=== PATIENT | female | born 1950 | race Caucasian/White ===

== ENCOUNTER 2019-09-07 07:57 | Inpatient (IN) | payer MEDICARE ==
[~2019-09-07] VITALS: Ht 149.9 cm; Wt 93.0 kg
[~2019-09-07 07:57] MED LIST: ALPR1 PO; Aspir 8181 MG PO; CYCL10 PO; Cymbalta60 MG PO; HYDACE5 PO; HYDCHL12.5 PO; NAPR500 PO; Omeprazole20 M1 PO; PROM25 PO; TRAZ50; ZOLP5
[2019-09-07] MEDS ORDERED: ESCI20 PO (08:13)
[2019-09-07] MEDS ORDERED: GABA300 PO (08:13)
[2019-09-07 08:53] LABS: BASOPHILS ABSOLUTE AUTO 0.05 K/mm3 (0.00-0.23); BASOPHILS PERCENT AUTO 1 % (0-2); EOSINOPHILS PERCENT AUTO 7 % (0-6); Hematocrit 41.6 % (33.0-51.0); Hemoglobin 13.4 g/dL (11.5-16.0); IMMATURE GRAN ABSOLUTE AUTO 0.02 K/mm3 (0.00-0.10); IMMATURE GRAN PERCENT AUTO 0 % (0-1); LYMPHOCYTES ABSOLUTE AUTO 1.86 K/mm3 (0.84-5.20); LYMPHOCYTES PERCENT AUTO 27 % (21-46); MONOCYTES ABSOLUTE AUTO 0.79 K/mm3 (0.16-1.47); MONOCYTES PERCENT AUTO 11 % (4-13); Mean Corpuscular HGB 30.5 pg (26.0-34.0); Mean Corpuscular HGB Conc 32.2 g/dL (31.5-36.5); Mean Corpuscular Volume 95 fL (80-100); Mean Platelet Volume 11.6 fL (9.1-12.4); NEUTROPHILS ABSOLUTE AUTO 3.79 K/mm3 (1.96-9.15); NEUTROPHILS PERCENT AUTO 54 % (41-73); Platelet Count 211 K/mm3 (150-400); RDW Coefficient Variation 13.1 % (11.7-14.2); RDW Standard Deviation 45.8 fL (35.1-46.3); Red Blood Cell Count 4.39 M/mm3 (3.80-5.20); White Blood Cell Count 7.01 K/mm3 (4.00-11.30)
[2019-09-07 09:11] LABS: Alanine Aminotransfer (ALT/SGP 34 U/L (12-78); Albumin, Blood 3.8 g/dL (3.4-5.0); Albumin/Globulin Ratio 1.2 (0.8-1.8); Alk Phos 96 U/L (50-136); Anion Gap 7 mmol/L (6-16); Aspartate Aminotrans (AST/SGOT 20 U/L (12-37); Bilirubin, Total 0.3 mg/dL (0.1-1.0); Blood Urea Nitrogen 21 mg/dL (8-24); Bun/Creatinine Ratio 24.9 (12.0-20.0); CO2, Blood 27 mmol/L (21-32); Chloride, Blood 106 mmol/L (98-108); Creatinine, Blood 0.84 mg/dL (0.40-1.00); Globulin, Blood 3.1 g/dL (2.2-4.0); Glomerular Filtration Rate >60 (60-); Glucose, Blood 117 mg/dL (70-99); Potassium, Blood 3.6 mmol/L (3.5-5.5); Sodium, Blood 140 mmol/L (136-145); Total Protein, Blood 6.9 g/dL (6.4-8.2)
[2019-09-07 16:05] LABS: International Normalized Ratio 1.01; Prothrombin Time Results 10.8 Sec (9.7-11.5)
--- NOTE | 2019-09-07 17:08 | NUR ---
PT AOX4 AND COOPERATIVE OF CARE. PT RESTING IN BED AT THIS TIME WITH CALL LIGHT WITHIN REACH. PT KEEPS CLEARING HER THROAT AND STATES IT IS SOMETIMES HARD TO BRING UP A WORD TO SAY. PT STATES SHE DOES NOTE FEEL THE NUMBNESS IN HER MOUTH LIKE SHE HAD BEEN. NO DISTRESS NOTED AND BP LOOKS IMPROVED UPON ARRIVAL. WILL CONTINUE TO MONITOR.
--- NOTE | 2019-09-07 18:50 | NUR ---
ASSUMED CARE RECEIVED REPORT FROM GAB ALBERTS. ASSUMED CARE OF PT. RESTING COMFORTABLY AT THIS TIME, NO S/S ACUTE DISTRESS NOTED. PT CONVERSING WITH STAFF, OCCASIONAL SLURRING OF SPEECH NOTED, PT ABLE TO EXPRESS NEEDS AND THOUGHTS APPROPRIATELY. DENIES NEEDS AT THIS TIME. CALL LIGHT, POSSESSIONS IN REACH. WILL CONTINUE TO MONITOR.
--- NOTE | 2019-09-08 04:30 | NUR ---
[address] SUBRAMANIAN REGARDING PT INABILITY TO VOID. ORDERS RECEIVED.
[2019-09-08 04:57] LABS: BASOPHILS ABSOLUTE AUTO 0.05 K/mm3 (0.00-0.23); BASOPHILS PERCENT AUTO 1 % (0-2); EOSINOPHILS PERCENT AUTO 8 % (0-6); Hematocrit 41.3 % (33.0-51.0); Hemoglobin 13.1 g/dL (11.5-16.0); IMMATURE GRAN ABSOLUTE AUTO 0.02 K/mm3 (0.00-0.10); IMMATURE GRAN PERCENT AUTO 0 % (0-1); LYMPHOCYTES ABSOLUTE AUTO 2.15 K/mm3 (0.84-5.20); LYMPHOCYTES PERCENT AUTO 36 % (21-46); MONOCYTES ABSOLUTE AUTO 0.61 K/mm3 (0.16-1.47); MONOCYTES PERCENT AUTO 10 % (4-13); Mean Corpuscular HGB 30.8 pg (26.0-34.0); Mean Corpuscular HGB Conc 31.7 g/dL (31.5-36.5); Mean Corpuscular Volume 97 fL (80-100); Mean Platelet Volume 11.4 fL (9.1-12.4); NEUTROPHILS ABSOLUTE AUTO 2.72 K/mm3 (1.96-9.15); NEUTROPHILS PERCENT AUTO 45 % (41-73); Platelet Count 181 K/mm3 (150-400); RDW Coefficient Variation 13.2 % (11.7-14.2); RDW Standard Deviation 47.1 fL (35.1-46.3); Red Blood Cell Count 4.25 M/mm3 (3.80-5.20); White Blood Cell Count 6.05 K/mm3 (4.00-11.30)
[2019-09-08 05:11] LABS: Anion Gap 2 mmol/L (6-16); Blood Urea Nitrogen 19 mg/dL (8-24); Bun/Creatinine Ratio 21.7 (12.0-20.0); CO2, Blood 31 mmol/L (21-32); Calcium, Blood 8.6 mg/dL (8.5-10.1); Chloride, Blood 108 mmol/L (98-108); Creatinine, Blood 0.88 mg/dL (0.40-1.00); Glomerular Filtration Rate >60 (60-); Glucose, Blood 89 mg/dL (70-99); Potassium, Blood 3.5 mmol/L (3.5-5.5); Sodium, Blood 141 mmol/L (136-145)
--- NOTE | 2019-09-08 06:29 | NUR ---
SHIFT SUMMARY PT RESTING COMFORTABLY, NO S/S ACUTE DISTRESS AT THIS TIME. BP AND VS STABLE. PT BLADDER SCANNED AND STRAIGHT CATHED FOR BLADDER SCAN OF 574ML, 570ML URINE DRAINED. PT STATES SHE FEELS BETTER. NO OTHER ACUTE EVENTS NOTED. NEURO STATUS STABLE. DENIES NEEDS AT THIS TIME. CALL LIGHT, POSSESSIONS IN REACH, BED IN LOWEST POSITION WITH ALARM ON. WILL CONTINUE TO MONITOR UNTIL DAY RN ASSUMES CARE.
--- NOTE | 2019-09-08 17:23 | NUR ---
PT IS AOX4 AND COOPERATIVE OF CARE. PT IS A ONE PERSON WITH GAIT BELT TO RESTROOM. PT DID NOT GET BLADDER SCANNED SHE IS VOIDING NOW. PT WILL STAY NPO TODAY EXCEPT FOR WATER AND CAN TAKE HER MEDS WHOLE FOLLOWING SWALLOW PRECAUTIONS IN ROOM. PT CALLS APPROPRIATELY. PT STATES SHE HAS LESS NUMBNESS ON HER R SIDE WITH ARM AND LEG. PT CAN MOVE TO QUICK SHE DID WITH PHYSICAL THERAPY AND ENDED UP KNEELING THINKING HER LEG WOULD MOVE DIFFERENT. PT JUST NEED TO BE SLOWED DOWN AND GAIT BELT WITH WALKER. MILD R FACIAL DROOP STILL NOTED AT THIS TIME WILL CONTINUE TO MONITOR.
--- NOTE | 2019-09-08 18:01 | NUR ---
[facility] C[facility] VISIT: REFERRAL RECEIVED FOR CONVERSATION WITH PT RE: CODE STATUS AND ADVANCED DIRECTIVES PER PT'S REQUEST AND DR'S REFERRAL. INTRODUCED MYSELF TO PT WHO WAS RESTING QUIETLY, MAYBE NAPPING WHEN I KNOCKED ON DOOR. SHE WOKE EASILY AND WAS WELCOMING OF THE CONVERSATION. SHE STATED SHE HAS ALWAYS THOUGHT "I WANT ALL LIFE SAVING MEASURES DONE" BUT WHEN ASKED BY DRS YESTERDAY RE: CODE STATUS SHE STARTED WONDERING IF SHE REALLY DID WANT TO REMAIN A FULL CODE. I LISTENED AND PROVIDED ANSWERS TO PT'S QUESTIONS. WE DISCUSSED OUTCOMES AND SPECIFIC SCENARIOS FOR NECESSARY DECISION MAKING THAT DO NOT CURRENTLY APPLY TO PT'S SITUATION. SHE IS 68 AND CONSIDERS HERSELF HEALTHY. SHE WAS ADMITTED DUE TO A "SMALL STROKE". SHE IS ABLE TO SWALLOW, COMMUNICATE AND WALK TO BR WITH ONE PERSON ASSIST. SHE STATES AT 68, "IS IT THE RIGHT THING TO WANT TO BE SAVED". I ENCOURAGED HER TO CONSIDER HER OWN PERSONAL SITUATION AND VALUES IN RELATIONSHIP TO QUALITY OF LIFE AND REVISIT THAT EVALUATION REGULARLY IF THERE WERE CHANGES TO HER HEALTH AND WITH ADVANCING AGE, TO DISCUSS WITH HER , FAMILY AND PCP. PT WAS GIVEN BLANK AD AND POLST FORMS PER HER REQUEST. I RECOMMENDED THAT AFTER CONSIDERATION AND DECISION FOR HERSELF THAT SHE TAKE THE POLST TO HER NEXT DARI WITH HER PCP AND GET THEIR INPUT AND COMPLETE. INSTRUCTED TO GIVE COPIES OF COMPLETED FORMS TO DRS, HOSPITAL AND FAMILY MEMBERS OR SURROGATE DECISION MAKERS. PT GIVEN TWO BROCHURES ON LIFE SUSTAINING TREATMENTS, INCLUDING HARD CHOICES FOR LOVING PEOPLE FOR HER AND HER TO REVIEW TOGETHER. PT SEEMED RELIEVED TO HAVE THIS CONVERSATION AND LESS ANXIOUS IN HER CONSIDERATIONS OF CHOICES AFTERWARDS. PT GIVEN CONTACT INFO TO REACH US AND ENCOURAGED TO CALL OR HAVE RN PAGE US IF SHE WOULD LIKE TO TALK FURTHER. SHE IS HOPEFUL FOR D/C HOME TOMORROW WITH EITHER HH OR OP PT AND OT. SHE REPORTS SHE HAS HELP AT HOME. SHE DENIES PAIN AND EXPRESSES GRATITUDE FOR "HOW LINDA I AM" WITH MINIMAL SEQUELAE FROM CVA. REPORT ON VISIT TO RN AFTERWARDS.
--- NOTE | 2019-09-08 20:39 | NUR ---
PT REPORTING NEW ONSET L LE "HEAVINESS" AND INCREASED EFFORT SWALLOWING. CALL TO HOSPITALIST ADÁN. NEW ORDER FOR STAT CT.
--- NOTE | 2019-09-09 04:16 | NUR ---
SHIFT SUMMARY: BP'S 177/80. PULSES 49-54. S[place] MARY PER TELE MONITOR. A/OX3. SLIGHTLY SLOW TO RESPOND. SPEECH IS CLEAR W/MINOR SLURRING. CONT W/BARELY NOTICEABLE R FACE DROOP. B KITCHEN WORKER EQUAL AND WEAK, LLE PUSH/PULL SLIGHTLY WEAKER THAN R. PT HAD CT SCAN TONIGHT AFTER REPORTS OF NEW RLE "HEAVINESS" AND INCREASED DIFFICULTY SWALLOWING. PT REPORTED HER SYMPTOMS WERE IMPROVING ON HER WAY DOWN TO THE CT SCAN. NO FURTHER ISSUES TONIGHT. T/F W SBA. HAS SLEPT INTERMITTENTLY. WILL CONT TO MONITOR.
[2019-09-09 05:22] LABS: CHOL/HDL RATIO 4.2; Cholesterol 171 mg/dL (50-200); HDL Cholesterol 41 mg/dL (>39); LDL/HDL RATIO 2.6; Low Density Lipoprotein Chol 105 mg/dL (0-110); Triglycerides 127 mg/dL (30-160); Very Low Density Lipoprot Chol 25 mg/dL (6-32)
--- NOTE | 2019-09-09 09:31 | NUR ---
RN contacted this therapist to relay that the patient had changed her mind and was open to having a modified barium swallow study completed as an inpatient. Therefore order was placed.
--- NOTE | 2019-09-09 12:32 | NUR ---
SHE HAS HAD A BEDSIDE SWALLOW EVAL AND A SWALLOW STUDY IN XRAY TODAY. ROUNDED. SHE EXPLAINED LAST NIGHT'S CT RESULTS TO HER. SHE AGREES THAT STAYING ANOTHER NIGHT IS RIGHT. IVF'S CONTINUE. MECH SOFT DIET HAS BEEN STARTED. SHE HAS SLIGHTLY SLURRED SPEECH AND A RIGHT FACIAL DROOP. SHE HAS WORKED WITH OT ALSO AND HAS BEEN AMBULATING WELL. WE BLADDER SCANNED HER AT 1130. THERE WAS 168 MLS IN HER BLADDER. IT WAS NOT A PVR. CHIEF DESIGN DRAFTER SAW HER ALSO BEFORE BREAKFAST. SHE LEFT A NOTE. SHE HAS NOT BEEN BRADYCARDIC THIS SHIFT. HER FAMILY IS SUPPOSE TO BRING HER CPAP FOR HER.
--- NOTE | 2019-09-09 17:40 | NUR ---
NO NEW NEURO DEFICITS TODAY. SHE STILL HAS A RT FACIAL DROOP AND NUMBNESS AROUND THE MOUTH. SHE WORKED WITH PT, OT, AND ST. SHE ALSO HAD A SWALLOW TEST IN RADIOLOGY. DR. CRUZ AND DR. BENDER ROUNDED. 2 BLADDER SCANS DONE TODAY. AM ONE WAS 168 MLS. PRE DINNER ONE WAS 371. NO CATHERIZATION NEEDED. TELE NSR 70'S AND 80'S. LATER SB 50'S. SHE NAPPED A LOT THIS AFTERNOON AFTER A VERY BUSY MORNING.
--- NOTE | 2019-09-10 05:30 | NUR ---
SHIFT SUMMARY: VSS. RECIEVED CALL FROM TELE SEAT COVERS TRIMMER STATING PULSES IN THE LOW 40'S TONIGHT. THIS IS COMPARABLE TO PT'S ONGOING BRADYCARDIA AT REST. AFEB. A/OX4. COMMUNICATES NEEDS. T/F W/1 ASSIST AND FWW. GAIT OCCASIONALLY UNSTEADY. NO FACIAL DROOP EVIDENT. PT REPORTS SLIGHT PERIORAL NUMBNESS. BILATERAL DRAFTER CHIEF DESIGN/PUSHES/PULLS EQUAL BILATERALLY. WORE CPAP ALL NIGHT. REPORTING MADISON 5/10 THIS AM. ULTRAM ADMINISTERED. WILL CONT TO MONITOR.
[2019-09-10] MEDS ORDERED: ASPI325 PO (12:19)
[2019-09-10] MEDS ORDERED: ATOR40TA PO (12:20)
[2019-09-10] MEDS ORDERED: Prinivil10 MG PO (12:22)
--- NOTE | 2019-09-10 13:16 | NUR ---
PT DCD HOME WITH . MED REC FAXED TO PHARMACY OF CHOICE. ALL INSTRUCTIONS AND MEDS REVIEWED WITH PT. ALL QUESTIONS ANSWERED. IV REMOVED WITH NO ISSUE. ALL PERSONAL BELONGINGS SENT WITH PT. PT ASSISTED TO TRUCK WITH . PT STABLE ON DC.
== END 2019-09-10 13:00 | disposition home health service (06) | DRG 65 ==
LOC: ER 07:57 → MEDS 14:26
PROVIDERS: Emergency Medicine; ADMIT Student in an Organized Health Care Education/Training Program
DX: I63.81 Other cerebral infarction due to occlusion or stenosis of small artery (principal); G81.91 Hemiplegia, unspecified affecting right dominant side; R47.81 Slurred speech; R13.12 Dysphagia, oropharyngeal phase; I10 Essential (primary) hypertension; E78.5 Hyperlipidemia, unspecified; G47.33 Obstructive sleep apnea (adult) (pediatric); E66.01 Morbid (severe) obesity due to excess calories; Z68.39 Body mass index [BMI] 39.0-39.9, adult; R73.01 Impaired fasting glucose; F32.9 Major depressive disorder, single episode, unspecified; R00.1 Bradycardia, unspecified; M79.7 Fibromyalgia; Z79.82 Long term (current) use of aspirin; Z79.899 Other long term (current) drug therapy
CPT/HCPCS: 36415; 51701; 70450; 70496; 70498; 70551; 74230; 80048; 80053; 80061; 83036; 84484; 85025; 85610; 85730; 92526; 92610; 92611; 93005; 93010; 93306; 96372; 97112; 97116; 97162; 97166; 97530; 97535; 99285-25; A9270-GY; G0378; J1650; J7030; Q9967

== ENCOUNTER → 2021-09-10 | Outpatient (CLI) | payer MEDICARE ==
[~2021-09-10] MED LIST changes: +ASPI325 PO; +ATOR40TA PO; +DESL5; +ESCI20 PO; +GABA300 PO; +Prinivil10 MG PO
== END | disposition home or self-care (01) ==
LOC: LAB SHORT 10:28 → LAB 10:28
DX: N39.0 Urinary tract infection, site not specified (principal)
CPT/HCPCS: 87077; 87086; 87186

== ENCOUNTER 2022-11-05 16:24 | Observation (INO) | payer MEDICARE ==
[~2022-11-05] VITALS: Ht 147.3 cm; Wt 84.1 kg
[~2022-11-05 16:24] MED LIST changes: -DESL5; +DESL5 PO
[2022-11-05 17:53] LABS: BASOPHILS ABSOLUTE AUTO 0.05 K/mm3 (0.00-0.23); BASOPHILS PERCENT AUTO 1 % (0-2); EOSINOPHILS ABSOLUTE AUTO 0.65 K/mm3 (0.00-0.68); EOSINOPHILS PERCENT AUTO 7 % (0-6); Hematocrit 37.2 % (33.0-51.0); Hemoglobin 12.5 g/dL (11.5-16.0); IMMATURE GRAN ABSOLUTE AUTO 0.01 K/mm3 (0.00-0.10); IMMATURE GRAN PERCENT AUTO 0 % (0-1); LYMPHOCYTES ABSOLUTE AUTO 2.71 K/mm3 (0.84-5.20); LYMPHOCYTES PERCENT AUTO 28 % (21-46); MONOCYTES ABSOLUTE AUTO 0.97 K/mm3 (0.16-1.47); MONOCYTES PERCENT AUTO 10 % (4-13); Mean Corpuscular HGB 31.1 pg (26.0-34.0); Mean Corpuscular HGB Conc 33.6 g/dL (31.5-36.5); Mean Corpuscular Volume 93 fL (80-100); NEUTROPHILS ABSOLUTE AUTO 5.47 K/mm3 (1.96-9.15); NEUTROPHILS PERCENT AUTO 56 % (41-73); Platelet Count 202 K/mm3 (150-400); RDW Coefficient Variation 13.2 % (11.7-14.2); RDW Standard Deviation 45.1 fL (35.1-46.3); Red Blood Cell Count 4.02 M/mm3 (3.80-5.20); White Blood Cell Count 9.86 K/mm3 (4.00-11.30)
[2022-11-05 18:15] LABS: Albumin, Blood 3.5 g/dL (3.4-5.0); Albumin/Globulin Ratio 0.9 (0.8-1.8); Bilirubin, Total 0.6 mg/dL (0.1-1.0); Bun/Creatinine Ratio 29.9 (12.0-20.0); Calcium, Blood 9.5 mg/dL (8.5-10.1); Creatinine, Blood 0.77 mg/dL (0.40-1.00); Globulin, Blood 3.9 g/dL (2.2-4.0); Potassium, Blood 3.1 mmol/L (3.5-5.5); Total Protein, Blood 7.4 g/dL (6.4-8.2)
[2022-11-05] MEDS ORDERED: ATOR40TA PO (19:42)
[2022-11-05] MEDS ORDERED: LOSA50 PO (19:43)
[2022-11-05 21:07] VITALS: BP 145/53
--- NOTE | 2022-11-05 21:25 | NUR ---
ARRIVAL PT ARRIVED TO THE FLOOR,NEW ADMIT FROM ER. IN NO DISTRESS, A/OX4, ON RA. REPORTS NO N/V OR ABD PAIN AT THIS TIME. REPORTS DIFFUSE PAIN WHEN ABD IS HURTING. THE PATIENT IS CURRENTLY RESTING IN BED, IN NO DISTRESS, CALL LIGHT IN REACH
[2022-11-06] VITALS (17 sets, daily range): BP systolic 98–152; BP diastolic 42–67
--- NOTE | 2022-11-06 04:12 | NUR ---
SHIFT SUMMARY VSS. PT SLEPT WELL T/O THE NIGHT. VOIDING W/O DIFFICULTY, AMBULATING WITH SBA D/T IV LINE. REMAINS A/OX4. MEDICATED FOR PAIN ONCE WITH FENT, GOOD RESULTS. PT ATE W/O N/V UNTIL 0000. HAS BEEN NPO SINCE. NO ACUTE EVENTS NOTED. PLAN FOR PT TO HAVE A LAP APPY TODAY. THE PATIENT IS CURRENTLY SLEEPING, IN NO DISTRESS, CALL LIGHT IN REACH
[2022-11-06 05:22] LABS: Hematocrit 34.3 % (33.0-51.0); Hemoglobin 11.4 g/dL (11.5-16.0); Mean Corpuscular HGB 31.6 pg (26.0-34.0); Mean Corpuscular HGB Conc 33.2 g/dL (31.5-36.5); Mean Corpuscular Volume 95 fL (80-100); Mean Platelet Volume 11.2 fL (9.1-12.4); Platelet Count 182 K/mm3 (150-400); RDW Coefficient Variation 13.2 % (11.7-14.2); RDW Standard Deviation 45.6 fL (35.1-46.3); Red Blood Cell Count 3.61 M/mm3 (3.80-5.20); White Blood Cell Count 8.57 K/mm3 (4.00-11.30)
[2022-11-06 06:08] LABS: Bun/Creatinine Ratio 24.4 (12.0-20.0); Calcium, Blood 9.1 mg/dL (8.5-10.1); Creatinine, Blood 0.9 mg/dL (0.40-1.00); Magnesium, Blood 2.3 mg/dL (1.6-2.4); Potassium, Blood 3.7 mmol/L (3.5-5.5)
--- NOTE | 2022-11-06 16:57 | NUR ---
SHIFT SUMMARY- PT ALERT, ORIENTED AND INEPENDENT PRIOR TO LAP APPENDECTOMY EARLIER THIS SHIFT. PT PAIN APPPEARS TO BE WELL MANAGED WITH IV FENTANYL, PT STATES WHEN TAKING HYDRO OR OXY SHE BECAME VERY NAUSEATED, SHE IS NOT WILLING TO TRY THEM AGAIN AT THIS TIME. LAP SITES (3) ARE CLEAN DRY AND INTSCT. NO BRUISING, ABD IS SOFT. VSS ON POST OP VITALS. POST OP VITALS ARE Q4 UNTIL 1200 TOMORROW. PT IN BED SLEEPING AT THIS TIME. CALL LIGHT IN REACH NO S&S OF DISTRESS NOTED. PLAN FOR POSSIBLE DC TOMORROW.
[2022-11-07 00:10] VITALS: BP 132/51
[2022-11-07 04:11] VITALS: BP 143/50
--- NOTE | 2022-11-07 04:24 | NUR ---
SHIFT SUMMARY NO ACUTE CHANGES DURING SHIFT. PT ALERT AND ORIENTED, CALLS APPROPRIATELY. PT REMAINS ON RA, X 1 ASSIST TO BATHROOM. PT C/O PAIN TO ABD, MEDICATED WITH PRN PAIN MEDS, EFFECTIVE. LAP SITES X 3. POSSIBLE D/C IN AM. WILL CONTINUE TO MONITOR. CALL LIGHT WITHIN REACH.
[2022-11-07 07:53] VITALS: BP 143/86
--- NOTE | 2022-11-07 12:32 | NUR ---
11/07/22 1232 Sandi Bowling VERIFICATIONS: EDIT CHART.
[2022-11-07 15:12] VITALS: BP 158/52
--- NOTE | 2022-11-07 15:12 | NUR ---
NOTE NO BM YET. GIVEN MIRALAX MIXED WITH WARM PRUNE JUICE AND BUTTER. PASSING GAS. ENCOURAGED HER TO WALK! SHE IS REFUSING. HER SISTER ENCOURAGED HER TO WALK WELL. SHE REFUSED HER SISTER TOO. MEDICATED FOR PAIN PER ORDER. CONTINUE POC.
[2022-11-07] MEDS ORDERED: DOCU100 PO (15:44)
[2022-11-07] MEDS ORDERED: Percocet 5-3251 EACH PO (15:44)
[2022-11-07] MEDS ORDERED: MIRALAX17 GM PO (15:45)
[2022-11-07] MEDS ORDERED: SENNA LAXATIVE8.6 MG PO (15:45)
[2022-11-07 19:36] VITALS: BP 148/51
--- NOTE | 2022-11-08 05:47 | NUR ---
SHIFT SUMMARY PT IS A&O4, IND IN ROOM, RA, STILL HAS NOT HAD BM PRN MIRALAX AND BROWN COW GIVEN, PT REFUSES ENEMA AT THIS TIME, ENCOURAGED PT TO AMBULATE, PRN PAIN MEDICATION GIVEN PER MAR, NO ACUTE OVERNIGHT EVENTS CONTINUE POC
[2022-11-08 06:12] VITALS: BP 165/53
[2022-11-08 07:54] VITALS: BP 187/53
--- NOTE | 2022-11-08 15:07 | NUR ---
SHIFT/DC SUMMARY: Pt remains A&O x3 this shift. Abdominal pain managed with Tylenol. VSS, ambulating in hallway independently with goal of BM. BS hypoactive, tolerating diet, afebrile. Pt request enema for BM with 1 small BM after given. Lap/appy incision sites dry, no redness. All discharge instructions reviewed with return verbal understanding. Pt to lobby with all belongings.
== END 2022-11-08 14:56 | disposition home or self-care (01) ==
LOC: ER 16:24 → MEDS 16:25 → ER 20:12 → MEDS 20:57
PROVIDERS: Nurse Practitioner Acute Care; Physician Assistant; ADMIT Internal Medicine
PROC: 0DTJ0ZZ Resection of Appendix, Open Approach (ICD-10-PCS; principal; 2022-11-05)
DX: K35.80 Unspecified acute appendicitis (principal); E78.5 Hyperlipidemia, unspecified; G47.33 Obstructive sleep apnea (adult) (pediatric); I10 Essential (primary) hypertension; K21.9 Gastro-esophageal reflux disease without esophagitis; F32.9 Major depressive disorder, single episode, unspecified; Z86.73 Personal history of transient ischemic attack (TIA), and cerebral infarction without residual deficits; Z88.0 Allergy status to penicillin; Z88.5 Allergy status to narcotic agent; Z99.89 Dependence on other enabling machines and devices
CPT/HCPCS: 36415; 80048; 80053; 83735; 85025; 85027; 88304; 94660; 94762; 96365; 96375; 96376; 99284-25; A9270; G0378; J0744; J1100; J2185; J2250; J2370; J2405; J2704; J3010; J7030; J7120

== ENCOUNTER → 2023-02-08 | Outpatient (CLI) | payer MEDICARE ==
[~2023-02-08] MED LIST changes: +DOCU100 PO; +LOSA50 PO; +MIRALAX17 GM PO; +Percocet 5-3251 EACH PO; +SENNA LAXATIVE8.6 MG PO
== END | disposition home or self-care (01) ==
LOC: LAB SHORT 12:04 → LAB 12:04
DX: N39.0 Urinary tract infection, site not specified (principal)
CPT/HCPCS: 87077; 87086; 87186

== ENCOUNTER → 2024-04-01 | Outpatient (CLI) | payer OTHER ==
[2024-04-01 12:29] LABS: Appearance, Urine Cloudy (Clear); Bilirubin, Urine 1+ (Neg); Blood, Urine 1+ (Neg); Color, Urine Yellow (P-Yellow); Glucose Qualitative, Urine Neg (Normal); Ketones, Urine Neg (Neg); Leukocyte Esterase, Urine 2+ (Neg); Nitrite, Urine Neg (Neg); Protein, Urine Trace (Neg); Urobilinogen, Urine 1+ (Normal)
[2024-04-01 12:43] LABS: Bacteria Many /hpf; Red Blood Cells, Urine Not Seen /hpf (0-2); Squamous Epithelial Cells Many /hpf (Few)
== END ==
LOC: LAB SHORT 12:24 → LAB 12:24
PROVIDERS: Family Medicine
DX: R35.0 Frequency of micturition (principal)
CPT/HCPCS: 81001; 87077; 87086; 87186

== ENCOUNTER → 2024-04-20 | Outpatient (CLI) | payer OTHER ==
[2024-04-20 13:24] LABS: Source, Urine Clean Catch
[2024-04-20 14:45] LABS: Appearance, Urine Turbid (Clear); Bilirubin, Urine Neg (Neg); Blood, Urine 2+ (Neg); Glucose Qualitative, Urine Neg (Neg); Ketones, Urine Neg (Neg); Leukocyte Esterase, Urine 3+ (Neg); Nitrite, Urine Neg (Neg); Protein, Urine 2+ (Neg); Specific Gravity, Urine 1.015 (1.003-1.022); Urobilinogen, Urine NORM (Normal)
[2024-04-20 15:13] LABS: Color, Urine Pale Yellow (P-Yellow); Squamous Epithelial Cells Mod /hpf (Few); White Blood Cells, Urine 50-100 /hpf (0-5)
[2024-04-20 15:14] LABS: Amorphous Heavy (0-Heavy); Bacteria Many /hpf; Mucus Light (0-Heavy); Transitional Epithelial Cells Rare /hpf (0-Rare)
== END ==
LOC: LAB 13:22 → LAB SHORT 13:22
PROVIDERS: Family Medicine
DX: N39.0 Urinary tract infection, site not specified (principal); A49.9 Bacterial infection, unspecified
CPT/HCPCS: 81001; 87077; 87086; 87186

== ENCOUNTER → 2024-06-08 | Outpatient (CLI) | payer OTHER | LOC: LAB 12:48 → LAB SHORT 12:48 | DX: R30.0 Dysuria (principal) | CPT/HCPCS: 87077; 87086; 87186 ==

== ENCOUNTER → 2024-11-30 | Outpatient (CLI) | payer OTHER | END | disposition home or self-care (01) | LOC: LAB SHORT 15:41 → LAB 15:41 | DX: R30.0 Dysuria (principal) | CPT/HCPCS: 87077; 87086; 87186 ==